=== PATIENT | female | born 2005 | race American Indian/Alaskan Native ===

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

== ENCOUNTER 2025-03-04 21:11 | Emergency (ER) | payer MEDICAID ==
[2025-03-04 21:55] LABS: APPEARANCE,URINE CLEAR (CLEAR); GLUCOSE,URINE NEGATIVE (NEGATIVE); OCCULT BLOOD,URINE MODERATE (NEGATIVE)
[2025-03-04 22:16] LABS: EPITHELIAL CELLS,URINE MODERATE /HPF (NOT SEEN)
[2025-03-04] MEDS: Take Home: hydrOXYzine HCl 25 MG Tab, 4 Tab Pack PO ONE (22:49)
== END 2025-03-04 23:03 | disposition home or self-care (01) ==
LOC: DL.ED 21:11
DX: O99.341 Other mental disorders complicating pregnancy, first trimester (principal); F33.1 Major depressive disorder, recurrent, moderate; F41.9 Anxiety disorder, unspecified; O21.9 Vomiting of pregnancy, unspecified; Z88.0 Allergy status to penicillin; Z91.018 Allergy to other foods; Z88.8 Allergy status to other drugs, medicaments and biological substances; Z87.891 Personal history of nicotine dependence; Z3A.00 Weeks of gestation of pregnancy not specified
CPT/HCPCS: 81001; 81025; 99284; A9270

== ENCOUNTER 2025-04-18 19:43 | Emergency (ER) | payer MEDICAID ==
[2025-04-18 20:18] LABS: BASOPHILS PERCENT AUTO 0.2 % (0.0-1.0); EOSINOPHILS PERCENT AUTO 0.5 % (1.0-3.0); LYMPHOCYTES PERCENT AUTO 31.5 % (20.5-50.1); MONOCYTES PERCENT AUTO 9.0 % (2-8); NEUTROPHILS PERCENT AUTO 58.8 % (42.2-75.2); PLATELET COUNT,PLT 225 10^3/uL (150-450); RED BLOOD CELL COUNT 5.03 10^6/uL (4.2-5.4); WHITE BLOOD CELL COUNT,WBC 5.5 10^3/uL (5.0-10.0)
[2025-04-18] MEDS: Ondansetron 4 MG/2 ML SDV IVPUSH ONE (20:23)
[2025-04-18 20:33] LABS: A/G RATIO 1.2; ALANINE AMINOTRANSFERASE,ALT 34.0 U/L (14-59); ASPARTATE AMNIOTRANSFERASE,AST 19.0 U/L (15-37); BILIRUBIN TOTAL 0.8 mg/dL (0.2-1.0); BLOOD UREA NITROGEN,BUN 10.0 mg/dL (7-18); CARBON DIOXIDE,CO2 23.0 mmol/L (21-32); CHLORIDE,CL 101.0 mmol/L (98-107); CREATININE 0.54 mg/dL (0.55-1.02); EST CRCL DRUG DOSING (CG) 120.19 mL/min; GLUCOSE RANDOM 98.0 mg/dL (70-99); POTASSIUM,K 3.2 mmol/L (3.5-5.1); PROTEIN TOTAL,TP 8.2 g/dL (6.4-8.2); SODIUM,NA 139.0 mmol/L (136-145)
[2025-04-18 20:35] LABS: ESTIMATED GFR 135.0 mL/min (>=60)
[2025-04-18 20:43] LABS: LACTIC ACID 2.2 mmol/L (0.4-2.0)
[2025-04-18 22:20] LABS: APPEARANCE,URINE SLIGHTLY CLOUDY (CLEAR); GLUCOSE,URINE NEGATIVE (NEGATIVE); OCCULT BLOOD,URINE TRACE-INTACT (NEGATIVE)
[2025-04-18 22:23] LABS: AMPHETAMINES,URINE NEGATIVE (NEGATIVE); BARBITURATES,URINE NEGATIVE (NEGATIVE); MDMA (ECSTASY), URINE NEGATIVE (NEGATIVE); METHAMPHETAMINES,URINE NEGATIVE (NEGATIVE); OPIATES,URINE POSITIVE (NEGATIVE); OXYCODONE,URINE NEGATIVE (NEGATIVE); PHENCYCLIDINE,URINE NEGATIVE (NEGATIVE); TCA,URINE NEGATIVE (NEGATIVE)
[2025-04-18 22:34] LABS: EPITHELIAL CELLS,URINE MODERATE /HPF (NOT SEEN)
[2025-04-18] MEDS: Take Home: Ondansetron 4 MG Tab.DIS, 5 Tab Pack PO ONE (23:13)
[2025-04-18] MEDS: Prenatal Multivitamin with Calcium/Folic Acid/Iron Tab PO ONE (23:14)
[2025-04-19] MEDS ORDERED: Prenatal Multivitamin with Calcium/Folic Acid/Iron Tab PO ONE (22:24)
== END 2025-04-18 23:25 | disposition home or self-care (01) ==
LOC: DL.ED 19:43
DX: O99.281 Endocrine, nutritional and metabolic diseases complicating pregnancy, first trimester (principal); E86.0 Dehydration; O21.9 Vomiting of pregnancy, unspecified; O31.21X1 Continuing pregnancy after intrauterine death of one fetus or more, first trimester, fetus 1; Z88.0 Allergy status to penicillin; Z91.018 Allergy to other foods; Z88.8 Allergy status to other drugs, medicaments and biological substances; Z3A.01 Less than 8 weeks gestation of pregnancy
CPT/HCPCS: 36415; 76801; 80053; 80305; 81001; 83605; 83690; 83735; 84702; 85025; 86850; 86900; 86901; 96361; 96374; 96375; 99284; A9270; J2270; J2405; J7030; Q0162

== ENCOUNTER 2025-04-27 13:10 | Emergency (ER) | payer MEDICAID ==
[2025-04-27] MEDS ORDERED: Sodium Chloride 0.9% 10 ML Syringe FLUSH PRN (13:59)
[2025-04-27 14:11] LABS: BASOPHILS PERCENT AUTO 0.2 % (0.0-1.0); EOSINOPHILS PERCENT AUTO 0.7 % (1.0-3.0); LYMPHOCYTES PERCENT AUTO 24.7 % (20.5-50.1); MONOCYTES PERCENT AUTO 8.7 % (2-8); NEUTROPHILS PERCENT AUTO 65.7 % (42.2-75.2); PLATELET COUNT,PLT 237 10^3/uL (150-450); RED BLOOD CELL COUNT 4.87 10^6/uL (4.2-5.4); WHITE BLOOD CELL COUNT,WBC 5.5 10^3/uL (5.0-10.0)
[2025-04-27 14:32] LABS: A/G RATIO 1.0; ALANINE AMINOTRANSFERASE,ALT 27 U/L (14-59); ASPARTATE AMNIOTRANSFERASE,AST 15 U/L (15-37); BILIRUBIN TOTAL 0.4 mg/dL (0.2-1.0); BLOOD UREA NITROGEN,BUN 7 mg/dL (7-18); CARBON DIOXIDE,CO2 28 mmol/L (21-32); CHLORIDE,CL 105 mmol/L (98-107); CREATININE 0.38 mg/dL (0.55-1.02); EST CRCL DRUG DOSING (CG) 177.56 mL/min; ESTIMATED GFR 147 mL/min (>=60); GLUCOSE RANDOM 84 mg/dL (70-99); POTASSIUM,K 4.0 mmol/L (3.5-5.1); PROTEIN TOTAL,TP 7.6 g/dL (6.4-8.2); SODIUM,NA 140 mmol/L (136-145)
[2025-04-27 14:54] LABS: APPEARANCE,URINE SLIGHTLY CLOUDY (CLEAR); GLUCOSE,URINE NEGATIVE (NEGATIVE); OCCULT BLOOD,URINE NEGATIVE (NEGATIVE)
[2025-04-27 15:02] LABS: EPITHELIAL CELLS,URINE MODERATE /HPF (NOT SEEN)
== END 2025-04-27 15:13 | disposition home or self-care (01) ==
LOC: DL.ED 13:10
DX: K59.00 Constipation, unspecified (principal); Z88.0 Allergy status to penicillin; Z88.8 Allergy status to other drugs, medicaments and biological substances; Z86.16 Personal history of COVID-19
CPT/HCPCS: 36415; 80053; 81001; 83735; 84702; 85025; 86140; 99283; 99284; A9270

== ENCOUNTER 2025-05-13 14:21 | Emergency (ER) | payer MEDICAID ==
[2025-05-13] MEDS ORDERED: Sodium Chloride 0.9% 10 ML Syringe FLUSH PRN (14:48)
[2025-05-13 14:59] LABS: BASOPHILS PERCENT AUTO 0.2 % (0.0-1.0); EOSINOPHILS PERCENT AUTO 0.5 % (1.0-3.0); LYMPHOCYTES PERCENT AUTO 25.3 % (20.5-50.1); MONOCYTES PERCENT AUTO 8.8 % (2-8); NEUTROPHILS PERCENT AUTO 65.2 % (42.2-75.2); PLATELET COUNT,PLT 234 10^3/uL (150-450); RED BLOOD CELL COUNT 5.01 10^6/uL (4.2-5.4); WHITE BLOOD CELL COUNT,WBC 6.3 10^3/uL (5.0-10.0)
[2025-05-13 15:03] LABS: APPEARANCE,URINE SLIGHTLY CLOUDY (CLEAR); GLUCOSE,URINE NEGATIVE (NEGATIVE); OCCULT BLOOD,URINE NEGATIVE (NEGATIVE)
[2025-05-13] MEDS: Ondansetron 4 MG/2 ML SDV IVPUSH ONE (15:05)
[2025-05-13 15:13] LABS: EPITHELIAL CELLS,URINE MODERATE /HPF (NOT SEEN)
[2025-05-13 15:19] LABS: A/G RATIO 0.9; ALANINE AMINOTRANSFERASE,ALT 24 U/L (14-59); ASPARTATE AMNIOTRANSFERASE,AST 17 U/L (15-37); BILIRUBIN TOTAL 0.3 mg/dL (0.2-1.0); BLOOD UREA NITROGEN,BUN 9 mg/dL (7-18); CARBON DIOXIDE,CO2 28 mmol/L (21-32); CHLORIDE,CL 99 mmol/L (98-107); CREATININE 0.39 mg/dL (0.55-1.02); EST CRCL DRUG DOSING (CG) 176.96 mL/min; ESTIMATED GFR 146 mL/min (>=60); GLUCOSE RANDOM 87 mg/dL (70-99); POTASSIUM,K 3.7 mmol/L (3.5-5.1); PROTEIN TOTAL,TP 8.2 g/dL (6.4-8.2); SODIUM,NA 136 mmol/L (136-145)
== END 2025-05-13 16:30 ==
LOC: DL.ED 14:21
DX: O26.891 Other specified pregnancy related conditions, first trimester (principal); R10.2 Pelvic and perineal pain; Z88.0 Allergy status to penicillin; Z88.5 Allergy status to narcotic agent; Z91.018 Allergy to other foods; Z79.899 Other long term (current) drug therapy; Z86.16 Personal history of COVID-19; Z3A.09 9 weeks gestation of pregnancy
CPT/HCPCS: 36415; 80053; 81001; 83690; 83735; 84702; 85025; 86140; 87086; 96361; 96374; 96375; 99284; J2270; J2405; J7030

== ENCOUNTER 2025-06-27 07:02 | Emergency (ER) | payer MEDICAID ==
[2025-06-27] MEDS: Ondansetron 4 MG/2 ML SDV IVPUSH ONE (07:28)
[2025-06-27 07:29] LABS: BASOPHILS PERCENT AUTO 0.2 % (0.0-1.0); EOSINOPHILS PERCENT AUTO 1.3 % (1.0-3.0); LYMPHOCYTES PERCENT AUTO 22.8 % (20.5-50.1); MONOCYTES PERCENT AUTO 8.0 % (2-8); NEUTROPHILS PERCENT AUTO 67.7 % (42.2-75.2); PLATELET COUNT,PLT 225 10^3/uL (150-450); RED BLOOD CELL COUNT 4.34 10^6/uL (4.2-5.4); WHITE BLOOD CELL COUNT,WBC 5.3 10^3/uL (5.0-10.0)
[2025-06-27 07:42] LABS: BLOOD UREA NITROGEN,BUN 10.0 mg/dL (7-18); CARBON DIOXIDE,CO2 26.0 mmol/L (21-32); CHLORIDE,CL 99.0 mmol/L (98-107); CREATININE 0.31 mg/dL (0.55-1.02); EST CRCL DRUG DOSING (CG) 232.99 mL/min; GLUCOSE RANDOM 75.0 mg/dL (70-99); POTASSIUM,K 3.9 mmol/L (3.5-5.1); SODIUM,NA 131.0 mmol/L (136-145)
[2025-06-27 07:47] LABS: ESTIMATED GFR 154.0 mL/min (>=60)
[2025-06-27 09:30] LABS: APPEARANCE,URINE CLEAR (CLEAR); GLUCOSE,URINE NEGATIVE (NEGATIVE); OCCULT BLOOD,URINE NEGATIVE (NEGATIVE)
== END 2025-06-27 10:06 | disposition home or self-care (01) ==
LOC: DL.ED 07:02
DX: R55 Syncope and collapse (principal); R10.84 Generalized abdominal pain; Z88.0 Allergy status to penicillin; Z91.018 Allergy to other foods; Z88.8 Allergy status to other drugs, medicaments and biological substances; Z86.16 Personal history of COVID-19
CPT/HCPCS: 36415; 76810; 80048; 81003; 84702; 85025; 96361; 96374; 99284; J2405; J7030

== ENCOUNTER 2025-07-11 10:46 | Emergency (ER) | payer MEDICAID ==
[2025-07-11] MEDS ORDERED: Sodium Chloride 0.9% 10 ML Syringe FLUSH PRN (11:36)
[2025-07-11 11:44] LABS: PLATELET COUNT,PLT 273 10^3/uL (150-450); RED BLOOD CELL COUNT 4.21 10^6/uL (4.2-5.4); WHITE BLOOD CELL COUNT,WBC 7.5 10^3/uL (5.0-10.0)
[2025-07-11 11:48] LABS: BASOPHILS PERCENT AUTO 0.1 % (0.0-1.0); EOSINOPHILS PERCENT AUTO 0.7 % (1.0-3.0); LYMPHOCYTES PERCENT AUTO 19.1 % (20.5-50.1); MONOCYTES PERCENT AUTO 8.9 % (2-8); NEUTROPHILS PERCENT AUTO 71.2 % (42.2-75.2)
[2025-07-11 11:54] LABS: APPEARANCE,URINE CLEAR (CLEAR); GLUCOSE,URINE NEGATIVE (NEGATIVE); OCCULT BLOOD,URINE NEGATIVE (NEGATIVE)
[2025-07-11 12:02] LABS: ALANINE AMINOTRANSFERASE,ALT 18.0 U/L (14-59); ASPARTATE AMNIOTRANSFERASE,AST 17.0 U/L (15-37); BILIRUBIN TOTAL 0.1 mg/dL (0.2-1.0); BLOOD UREA NITROGEN,BUN 10.0 mg/dL (7-18); CARBON DIOXIDE,CO2 23.0 mmol/L (21-32); CHLORIDE,CL 104.0 mmol/L (98-107); CREATININE 0.32 mg/dL (0.55-1.02); EST CRCL DRUG DOSING (CG) 235.52 mL/min; GLUCOSE RANDOM 85.0 mg/dL (70-99); POTASSIUM,K 3.6 mmol/L (3.5-5.1); PROTEIN TOTAL,TP 7.5 g/dL (6.4-8.2); SODIUM,NA 137.0 mmol/L (136-145); TSH ULTRASENSITIVE 1.85 uIU/mL (0.36-3.74)
[2025-07-11 12:09] LABS: A/G RATIO 0.63; ESTIMATED GFR 153.0 mL/min (>=60)
[2025-07-11 12:14] LABS: LYMPHOCYTES PERCENT MAN 17 % (20-50); MONOCYTES PERCENT MAN 10 % (2-8); SEG NEUTROPHILS PERCENT MAN 73 % (42-75)
[2025-07-11 12:18] LABS: INR 0.9 (0.9-1.2); PTT,PARTIAL THROMBOPLSTIN TIME 25.0 SEC (22.0-34.0)
[2025-07-11 12:21] LABS: IRON,FE 35.0 ug/dL (50-170); PERCENT FE SATURATION 6.2 % (20.0-50.0)
[2025-07-11 12:27] LABS: CREATININE,URINE RAND 98.44 mg/dL (No establ ref range); PROTEIN CREATININE RATIO,URINE 142.2 mg/g (<150.0); PROTEIN,URINE RANDOM 14.0 mg/dL (0.0-11.9)
== END 2025-07-11 13:29 | disposition home or self-care (01) ==
LOC: DL.ED 10:46
DX: O99.012 Anemia complicating pregnancy, second trimester (principal); D50.9 Iron deficiency anemia, unspecified; Z3A.18 18 weeks gestation of pregnancy; Z88.0 Allergy status to penicillin; Z88.8 Allergy status to other drugs, medicaments and biological substances; Z86.16 Personal history of COVID-19
CPT/HCPCS: 36415; 80053; 81003; 82570; 83036; 83540; 83550; 83735; 84156; 84443; 85025; 85610; 85730; 87086; 93005; 93010; 99284; 99285